=== PATIENT | female | born 1980 | race Two or more races ===

== ENCOUNTER 2016-10-02 08:11 | Emergency (ER) | payer MEDICAID ==
[2016-10-02 08:38] LABS: PH,URINE 6.5 (5.0-8.0); URINE BILIRUBIN NEGATIVE (NEGATIVE); URINE BLOOD NEGATIVE (NEGATIVE); URINE GLUCOSE (UA) NEGATIVE (NEGATIVE); URINE LEUKOCYTE ESTERASE NEGATIVE (NEGATIVE); URINE NITRITE NEGATIVE (NEGATIVE); URINE PROTEIN TRACE (NEGATIVE); URINE UROBILINOGEN NORMAL (0-1 mg/dl)
[2016-10-02 08:39] LABS: URINE APPEARANCE CLEAR; URINE COLOR YELLOW
[2016-10-02 08:40] LABS: HCG,QUALITATIVE URINE NEGATIVE
[2016-10-02 09:12] LABS: ABSOLUTE NEUTROPHIL COUNT 7.7 K/mm3 (1.8-7.7); BASO % 0.3 % (0.2-1.0); EOS # 0.2 (0.0-0.5); EOS % 2.2 % (0.9-2.9); HEMATOCRIT 34.4 % (37.0-47.0); HEMOGLOBIN 11.4 gm/l (12.0-16.0); IMM NEUT% 0.3 % (0-1); LYMPH # 1.7 (1.0-4.8); LYMPH % 16.5 % (15-45); MEAN CELL VOLUME 85.4 fl (81.0-99.0); MEAN CORPUSCULAR HEMOGLOBIN 28.3 pg (27.0-31.0); MEAN CORPUSCULAR HGB CONC 33.1 g/dl (33.0-37.0); MEAN PLATELET VOLUME 9.4 fl (7.4-10.4); MONO # 0.6 (0.0-0.8); NEUT % 74.7 % (43-75); PLATELET COUNT 303 K/mm3 (130-400)
[2016-10-02] MEDS ORDERED: ONDANSETRON 4 MG/2ML 2 ML VIAL ONE (09:15)
[2016-10-02] MEDS ORDERED: KETOROLAC TROMETHAMINE 30 MG/ML 1 ML VIAL ONE (09:15)
[2016-10-02 09:26] LABS: ALB/GLOB RATIO 1.1 (>1.0); ALBUMIN 4.2 gm/dL (3.5-5.7); CALCIUM 9.5 mg/dL (8.6-10.3)
--- NOTE | 2016-10-02 11:25 | US ---
Exam: Gallbladder ultrasound COMPARISON: None INDICATION: Right upper quadrant pain that radiates to back since last night. Findings: Gallbladder ultrasound was obtained. The gallbladder is significantly distended, and contains at least 4 mobile stones which measure up to 1.3 cm. There is no gallbladder wall thickening or pericholecystic fluid. There was a negative sonographic Gudino's sign although patient was medicated prior to the exam. Common bile duct normal at 3 mm. IMPRESSION: Cholelithiasis without sonographic evidence of acute cholecystitis or biliary ductal dilation. Report called to Dr. Jones 1121 hours 10/02/2016.
[2016-10-02] MEDS ORDERED: HYDROMORPHONE HCL 0.5 MG/0.5 ML SYRINGE ONE (12:31)
== END 2016-10-02 13:17 | disposition home or self-care (01) ==
LOC: ED 08:11
DX: K80.20 Calculus of gallbladder without cholecystitis without obstruction (principal)
CPT/HCPCS: 83690; 81025; 85025; 80053; 81003; 76705; 96375 ×2; 99283 ×2; 96374; J1885; J2405; J1170

== ENCOUNTER 2016-12-01 06:30 | Day surgery (SDC) | payer MEDICAID, OTHER ==
[2016-12-01] MEDS ORDERED: IV START KIT ONE (06:39)
[2016-12-01] MEDS ORDERED: LACTATED RINGERS 1,000 ML ONE ×2 (06:39→10:19)
[2016-12-01] MEDS ORDERED: CEFAZOLIN SODIUM 2 GRAM PREMIX 100 ML IV ONE (06:40)
[2016-12-01] MEDS ORDERED: CEFAZOLIN SODIUM 2 GRAM PREMIX 2 G in Premix (D5W) 100 ml 1 EACH IV PRN (06:46)
[2016-12-01] MEDS ORDERED: LACTATED RINGERS 1,000 ML IV SCH ×3 (06:46→10:44)
[2016-12-01] MEDS ORDERED: LIDOCAINE 1% 2 ML VIAL ID PRN (06:46)
[2016-12-01 07:31] LABS: ALB/GLOB RATIO 1.1 (>1.0); ALBUMIN 4.1 gm/dL (3.5-5.7); CALCIUM 9.1 mg/dL (8.6-10.3)
[2016-12-01] MEDS ORDERED: ROCURONIUM BROMIDE 10 MG/ML DOSE IV ONE (08:01)
[2016-12-01] MEDS ORDERED: DEXAMETHASONE SOD PHOS 4 MG/1 ML VIAL ONE (08:01)
[2016-12-01] MEDS ORDERED: ONDANSETRON 4 MG/2ML 2 ML VIAL ONE (08:01)
[2016-12-01] MEDS ORDERED: MIDAZOLAM HCL 1 MG/ML 2ML VIAL ONE (08:01)
[2016-12-01] MEDS ORDERED: PROPOFOL 20 ML IV ONE (08:01)
[2016-12-01] MEDS ORDERED: FENTANYL 100 MCG/2 ML VIAL ONE ×3 (08:01→10:09)
[2016-12-01] MEDS ORDERED: LIDOCAINE 1%/EPI 1:100,000 (MULTI DOSE) 30 ML VIAL ONE (08:14)
[2016-12-01] MEDS ORDERED: MEPERIDINE 25 MG/ML SYRINGE IV PRN (09:08)
[2016-12-01] MEDS ORDERED: FENTANYL 100 MCG/2 ML VIAL IV PRN (09:08)
[2016-12-01] MEDS ORDERED: HYDRALAZINE HCL 20 MG/1 ML VIAL IV PRN (09:08)
[2016-12-01] MEDS ORDERED: PROMETHAZINE HCL 25 MG/ML VIAL IM PRN (09:08)
[2016-12-01] MEDS ORDERED: HYDROMORPHONE HCL 1 MG/ML SYRINGE IV PRN ×2 (09:08→10:44)
[2016-12-01] MEDS ORDERED: ATROPINE SULFATE 0.4 MG/1 ML VIAL IV PRN (09:08)
[2016-12-01] MEDS ORDERED: NALOXONE HCL 0.4 MG/ML VIAL IV PRN (09:08)
[2016-12-01] MEDS ORDERED: LABETALOL HCL 5 MG/ML 20ML VIAL IV PRN (09:08)
[2016-12-01] MEDS ORDERED: ONDANSETRON 4 MG/2ML 2 ML VIAL IV PRN ×2 (09:08→10:44)
[2016-12-01] MEDS ORDERED: NEOSTIGMINE METHYLSULFATE 1 MG/ML DOSE ONE (10:09)
[2016-12-01] MEDS ORDERED: GLYCOPYRROLATE 0.2 MG/ML 1ML VIAL ONE (10:09)
--- NOTE | 2016-12-01 10:29 | PCMON ---
Date of Procedure: 12/01/16 PREOPERATIVE DIAGNOSIS Chronic Cholecystitis with cholelithiasis POSTOPERATIVE DIAGNOSIS same. PROCEDURE PERFORMED Laparoscopic cholecystectomy. COMPLICATIONS None. OPERATIVE FINDINGS signs of chronic inflammation. Large stone in dyan's pouch. ESTIMATED BLOOD LOSS 5 mL. BRIEF INDICATIONS ANAHI HOBBS is a 36 year old F patient with symptoms consistent with gallbladder disease and was admitted for consideration of laparoscopic cholecystectomy. The preoperative liver function tests were normal, and RUQ-focused ultrasound demonstrated stones. Risks and benefits of surgery were explained to the patient, including the 1: 200 risk of common bile duct injury and the possible need for conversion to open technique (5%). The patient declined the possible alternatives and agreed to proceed with surgery, providing informed consent. DESCRIPTION OF PROCEDURE The patient was brought to the operating room and placed supine on the operating room table. A surgical briefing was held to verify the correct patient and correct procedure. A general anesthetic was induced uneventfully, followed by the administration of a subcutaneous heparin injection and perioperative antibiotics. Pneumatic compression stockings were placed on the legs and powered on. The abdomen was prepped and draped in a sterile fashion. A 5-mm direct optical view trocar was used to enter to the right of the umbilicus under direct vision of the abdominal wall layers. Once inside the abdominal cavity, a pneumoperitoneum was created. No injury to underlying structures occurred with placement of this trocar. Once inside the abdominal cavity, an additional 11-mm port was placed in the upper midline just below the xiphisternum. Additional two 5-mm port were placed in the right upper quadrant. All trocars were placed under direct visualization. There was no injury to underlying structures with placement of these trocars. Once inside the abdominal cavity and the pneumoperitoneum was created, the gallbladder was retracted over the liver. We were able to identify inflammation around the gallbladder, and there appeared to be a stone in Dyan pouch. The gallbladder was then grasped by Dyan pouch and retracted up away from the common bile duct. The dissection was initiated with hook electrocautery on the posterior peritoneum covering of the hepatobiliary triangle, followed by the medical border of the gallbladder in the region of Calot triangle. We identified the lymph node of Calot which was not removed during the dissection. We continued our dissection, mobilizing lymph node off the cystic artery. As the triangle was developed, the cystic artery was identified. An intraoperative cholangiogram was not performed. The cystic duct and artery were both identified and exposed. A critical view of safety was obtained by clearing all the tissue between the underside of the infundibulum and the liver so the cystic duct and the artery could be clearly seen going into the gallbladder. The triangle of Calot had no aberrant structures or additional anatomy present within the triangle between the liver bed, the cystic duct and the region of the gallbladder. Once the critical view was demonstrated and there was no evidence of additional structures, we turned our attention to clipping the cystic artery and duct. The cystic artery was clipped twice proximally, once distally and transected. This was confirmed as the artery with pulsatile beating in the region of the clips once transected. Once the artery was taken, we turned our attention to clipping the cystic duct. The cystic duct was clipped with 2 to 3 clips proximally and once distally. This was then transected, and we then removed the gallbladder from the gallbladder bed. No injury to the underlying liver occurred with removal of the gallbladder, there was no evidence of bile leak or bile duct injury, and the gallbladder was not perforated with no spillage of stones prior to removal. The gallbladder was then placed in an Endocatch bag and removed through the 11-mm trocar. The 11 mm port site was closed with a Carlos Shweta and 0-Vicryl suture. The pneumoperitoneum was released, and the trocars were removed under direct visualization. No oozing or bleeding with trocar removal. The skin incisions were closed with 4-0 monocryl. Steristrips were applied and the patient was awakened and retured to recovery in stable condition. All needle instrument and sponge counts were correct x2 at the end of the case.
[2016-12-01] MEDS ORDERED: OXYCODONE/ACETAMINOPHEN 5/325 MG TABLET PO PRN (10:44)
[2016-12-01] MEDS ORDERED: HYDROMORPHONE HCL 0.5 MG/0.5 ML SYRINGE ONE (11:13)
[2016-12-01] MEDS ORDERED: OXYCODONE/ACETAMINOPHEN 5/325 MG TABLET ONE (12:39)
--- NOTE | 2016-12-04 13:04 | SURGPATH ---
[facility] [address] [place] [id number] Patient Name: ANAHI FELIPE MR#: [id number] : 1980 Gender: F Specimen #: [id number] Collected: 12/01/2016 Received: 12/03/2016 Reported: 12/04/2016 Submitting Phys: LUCINA BRANNON Copy To Phys: JA LUND [facility] Clinical History / Pre-Operative Diagnosis: Cholelithiasis with chronic cholecystitis without obstruction Specimen Source / Surgical Procedure Performed: Gallbladder Interpretation: GALLBLADDER: - CHRONIC AND FOCAL ACUTE CHOLECYSTITIS WITH CHOLELITHIASIS. - INCIDENTAL, BENIGN LYMPH NODE. Electronically Signed Out Licha Piper M.D. Gross Description: The specimen is received in formalin labeled with the patient's name and "gallbladder". The specimen consists of an 8.0 x 3.0 x 3.0 cm mottled dusky partially disrupted gallbladder. The mucosa is valadez-brown and flat. There are many yellow 0.1-1 cm ovoid or faceted calculi. There is also a 1 cm lymph node. 1A passenger relations representative gallbladder including cystic duct and lymph node RATNA Jha Microscopic Description: Sections of the gallbladder show a flattened mucosa with areas of erosion as well as chronic and focal acute inflammation. The gallbladder wall is thickened and fibrotic with areas of inflammation. There is no evidence of neoplasm. A section of the lymph node shows benign lymph node tissue. 1: [id number] K81.2
== END 2016-12-01 13:15 | disposition home or self-care (01) ==
LOC: SDC 06:30
PROVIDERS: ATTEND Surgery
PROC: 0FT44ZZ Resection of Gallbladder, Percutaneous Endoscopic Approach (ICD-10-PCS; principal; 2016-12-01)
DX: K80.10 Calculus of gallbladder with chronic cholecystitis without obstruction (principal); R51 Headache
CPT/HCPCS: 47562; 80053; J3010 ×3; J1100; A9270; J2250; J2001; J2405; J7120 ×2; J7030; J1170; J0690